=== PATIENT | female | born 1935 | race African-American/Black ===

== ENCOUNTER 2019-10-27 16:00 | Inpatient (IN) ==
[2019-10-27 19:08] LABS: Basophils # 0.1 10*3/uL (0.0-0.2); Eosinophils # 0.1 10*3/uL (0.0-0.87); Eosinophils % 0.8 % (0.00-10.9); Hematocrit 43.8 VOL% (35.7-47.0); Hemoglobin 13.6 GM/DL (12.0-16.0); Immature Granulocytes % 1.1 %; Immature Granulocytes Absolute 0.08 #; Lymphocytes # 1.4 10*3/uL (1.4-4.0); Lymphocytes % 19.2 % (21.3-54.2); Mean Corpuscular HGB Conc 31.1 GM/DL (32-36); Mean Corpuscular Volume 89.2 FL (87-102); Mean Platelet Volume 13.2 FL (9.6-12.0); Monocytes % 12.7 % (1.7-12.7); Neutrophils % 65.2 % (38.7-73.9); Platelet Count 233 T/CUMM (130-400); Red Blood Count 4.91 MC/CUMM (3.8-5.5); Red Cell Distribution Width 14.3 % (9.3-17.3); White Blood Count 7.2 T/CUMM (4-12)
[2019-10-27 19:23] LABS: Alanine Aminotransferase < 9 U/L (13-56); Alkaline Phosphatase 272 U/L (45-117); Aspartate Amino Transferase 23 U/L (0-37); Blood Urea Nitrogen 13 MG/DL (7-18); Calcium 9.6 MG/DL (8.5-10.1); Estimated Glom Filtration Rate 68 ML/MIN; Glucose 98 MG/DL (74-106); Total Protein 7.4 G/DL (6.4-8.3)
[2019-10-27 19:51] LABS: Ferritin 141.7 ng/ml (8-252)
[2019-10-27 20:53] LABS: Apearance,Urine CLOUDY (Clear); Bacteria,Urine Occasional /HPF (Few); Bilirubin,Urine Negative (Negative); Blood, Urine Moderate mg/dL (Negative); Glucose,Urine (UA) Negative (Negative); Hyaline Casts,Urine 46 /LPF (0-3); Ketones,Urine 5 mg/dL (Negative); Mucus,Urine Occasional /LPF (Occasional); Nitrite,Urine Negative (Negative); Protein,Urine Negative; RBC,Urine 20 /HPF (0-4); Squamous Epithelial Cell,Urine Moderate /HPF (0-10); Urine Color Yellow (Yellow); Urine Specific Gravity 1.018 (1.001-1.035); Urine Urobilinogen < 2.0 EU/DL (0.2-1.0); WBC,Urine 42 /HPF (0-6)
[2019-10-27] MEDS ORDERED: GLUCAGON 1 MG VIAL IM PRN (22:55)
[2019-10-27] MEDS ORDERED: DEXTROSE 50% 25 GM/50 ML VIAL IV PRN (22:55)
[2019-10-27] MEDS ORDERED: hydrALAZINE 20 MG/1 ML VIAL IV PRN (23:00)
[2019-10-27] MEDS ORDERED: diphenhydrAMINE CAP 25 MG CAPSULE PO PRN (23:00)
[2019-10-27] MEDS ORDERED: ALUMINUM/MAGNES/SIMETH MAX STR 30 ML UDCUP PO PRN (23:00)
[2019-10-27] MEDS ORDERED: guaiFENesin/DM ER 600-30 MG TABLET PO PRN (23:00)
[2019-10-27] MEDS ORDERED: ACETAMINOPHEN 325 MG TABLET PO PRN (23:00)
[2019-10-27] MEDS ORDERED: NICOTINE 21 MG/24 HR PATCH TRANSDERM PRN (23:00)
[2019-10-28] MEDS: POTASSIUM CHLORIDE 20 MEQ PACK PO SCH (08:18)
[2019-10-28] MEDS: CETIRIZINE 10 MG TABLET PO SCH (08:18)
[2019-10-28] MEDS: hydroCHLOROthiazide 25 MG TABLET PO SCH (08:18)
[2019-10-28] MEDS: MELOXICAM 7.5 MG TABLET PO SCH (08:18)
[2019-10-28] MEDS: carvediloL 6.25 MG TABLET PO SCH (08:18)
[2019-10-28] MEDS: atenoloL 50 MG TABLET PO SCH (08:18)
[2019-10-28] MEDS: LOSARTAN 50 MG TABLET PO SCH (08:18)
[2019-10-28] MEDS: PANTOPRAZOLE 40 MG TABLET PO SCH (08:18)
[2019-10-28 12:31] LABS: Calcium 9.2 MG/DL (8.5-10.1); Osmolality,Calculated 268.1 MOS/KG (273-304)
[2019-10-28 12:39] LABS: Basophils # 0.1 10*3/uL (0.0-0.2); Basophils % 0.9 % (0.0-0.8); Eosinophils # 0.1 10*3/uL (0.0-0.87); Eosinophils % 1.9 % (0.00-10.9); Hematocrit 44.9 VOL% (35.7-47.0); Hemoglobin 13.6 GM/DL (12.0-16.0); Immature Granulocytes Absolute 0.07 #; Lymphocytes # 1.2 10*3/uL (1.4-4.0); Lymphocytes % 17.8 % (21.3-54.2); Mean Corpuscular HGB Conc 30.3 GM/DL (32-36); Mean Corpuscular Volume 89.6 FL (87-102); Mean Platelet Volume 13.2 FL (9.6-12.0); Monocytes % 15.2 % (1.7-12.7); Neutrophils % 63.2 % (38.7-73.9); Platelet Count 228 T/CUMM (130-400); Red Blood Count 5.01 MC/CUMM (3.8-5.5); Red Cell Distribution Width 14.4 % (9.3-17.3)
[2019-10-28] MEDS: SIMVASTATIN 10 MG TABLET PO SCH (20:30)
[2019-10-28] MEDS: LATANOPROST 0.005% OPH SOLN 2.5 ML BOTTLE BOTH EYES SCH (20:30)
[2019-10-29 05:25] LABS: Basophils # 0.1 10*3/uL (0.0-0.2); Basophils % 0.8 % (0.0-0.8); Eosinophils # 0.2 10*3/uL (0.0-0.87); Eosinophils % 2.4 % (0.00-10.9); Immature Granulocytes % 1.2 %; Immature Granulocytes Absolute 0.09 #; Lymphocytes # 1.7 10*3/uL (1.4-4.0); Lymphocytes % 23.2 % (21.3-54.2); Mean Corpuscular HGB Conc 29.2 GM/DL (32-36); Mean Corpuscular Volume 94.2 FL (87-102); Mean Platelet Volume 12.7 FL (9.6-12.0); Monocytes % 14.2 % (1.7-12.7); Neutrophils % 58.2 % (38.7-73.9); Platelet Count 241 T/CUMM (130-400); Red Blood Count 4.84 MC/CUMM (3.8-5.5); Red Cell Distribution Width 14.3 % (9.3-17.3); White Blood Count 7.5 T/CUMM (4-12)
[2019-10-29 05:47] LABS: Hematocrit 44.4 VOL% (35.7-47.0); Hemoglobin 13.3 GM/DL (12.0-16.0)
[2019-10-29 06:07] LABS: Atypical Lymphocytes Few; Eosinophils 1 % (0-10); Hypochromasia 1+; Lymphocytes 25 % (20-55); Microcytosis Slight; Segmented Neutrophils 63 % (50-85); Total Cells Counted 100
[2019-10-29 06:08] LABS: Ovalocytes Slight; Platelet Estimate Normal
[2019-10-29 06:10] LABS: Calcium 9.1 MG/DL (8.5-10.1); Osmolality,Calculated 272.7 MOS/KG (273-304)
[2019-10-29] MEDS: carvediloL 6.25 MG TABLET PO SCH (08:19)
[2019-10-29] MEDS: LOSARTAN 50 MG TABLET PO SCH (08:19)
[2019-10-29] MEDS: MELOXICAM 7.5 MG TABLET PO SCH (08:19)
[2019-10-29] MEDS: POTASSIUM CHLORIDE 20 MEQ PACK PO SCH (08:19)
[2019-10-29] MEDS: hydroCHLOROthiazide 25 MG TABLET PO SCH (08:19)
[2019-10-29] MEDS: PANTOPRAZOLE 40 MG TABLET PO SCH (08:19)
[2019-10-29] MEDS: atenoloL 50 MG TABLET PO SCH (08:20)
[2019-10-29] MEDS: CETIRIZINE 10 MG TABLET PO SCH (08:20)
[2019-10-29] MEDS: CEFEPIME 1,000 MG in SODIUM CHLORIDE 0.9% 100 ML IV SCH ×2 (11:02→20:26)
[2019-10-29] MEDS: VANCOMYCIN INJ 1,250 MG in SODIUM CHLORIDE 0.9% 250 ML IV SCH (12:51)
[2019-10-29] MEDS ORDERED: LEVOFLOXACIN 750 MG TABLET PO SCH (15:00)
[2019-10-29] MEDS: SIMVASTATIN 10 MG TABLET PO SCH (20:25)
[2019-10-29] MEDS: LATANOPROST 0.005% OPH SOLN 2.5 ML BOTTLE BOTH EYES SCH (20:25)
[2019-10-30] MEDS: CEFEPIME 1,000 MG in SODIUM CHLORIDE 0.9% 100 ML IV SCH ×4 (03:15→21:10)
[2019-10-30 05:55] LABS: Basophils # 0.1 10*3/uL (0.0-0.2); Basophils % 0.8 % (0.0-0.8); Eosinophils # 0.2 10*3/uL (0.0-0.87); Eosinophils % 2.9 % (0.00-10.9); Hemoglobin 12.8 GM/DL (12.0-16.0); Immature Granulocytes % 1.2 %; Immature Granulocytes Absolute 0.09 #; Lymphocytes # 1.3 10*3/uL (1.4-4.0); Lymphocytes % 17.2 % (21.3-54.2); Mean Corpuscular HGB Conc 30.5 GM/DL (32-36); Mean Corpuscular Volume 91.3 FL (87-102); Mean Platelet Volume 13.1 FL (9.6-12.0); Monocytes % 14.8 % (1.7-12.7); Neutrophils % 63.1 % (38.7-73.9); Platelet Count 216 T/CUMM (130-400); Red Cell Distribution Width 14.3 % (9.3-17.3); White Blood Count 7.6 T/CUMM (4-12)
[2019-10-30 06:30] LABS: Hypochromasia 1+; Platelet Estimate Adequate
[2019-10-30 06:31] LABS: Microcytosis Slight
[2019-10-30] MEDS: VANCOMYCIN INJ 1,250 MG in SODIUM CHLORIDE 0.9% 250 ML IV SCH (06:34)
[2019-10-30] MEDS: CETIRIZINE 10 MG TABLET PO SCH (08:08)
[2019-10-30] MEDS: POTASSIUM CHLORIDE 20 MEQ PACK PO SCH (08:08)
[2019-10-30] MEDS: MELOXICAM 7.5 MG TABLET PO SCH (08:08)
[2019-10-30] MEDS: PANTOPRAZOLE 40 MG TABLET PO SCH (08:09)
[2019-10-30] MEDS: carvediloL 6.25 MG TABLET PO SCH (08:09)
[2019-10-30] MEDS: LOSARTAN 50 MG TABLET PO SCH (08:09)
[2019-10-30] MEDS: hydroCHLOROthiazide 25 MG TABLET PO SCH (08:09)
[2019-10-30] MEDS: atenoloL 50 MG TABLET PO SCH (08:09)
[2019-10-30 09:26] LABS: Osmolality,Calculated 270.8 MOS/KG (273-304)
[2019-10-30] MEDS: SIMVASTATIN 10 MG TABLET PO SCH (21:10)
[2019-10-30] MEDS: ONDANSETRON 4 MG/2 ML VIAL IV PRN (21:12)
[2019-10-30] MEDS: LATANOPROST 0.005% OPH SOLN 2.5 ML BOTTLE BOTH EYES SCH (21:55)
[2019-10-31] MEDS: CEFEPIME 1,000 MG in SODIUM CHLORIDE 0.9% 100 ML IV SCH ×4 (03:44→22:47)
[2019-10-31 07:13] LABS: Basophils # 0.1 10*3/uL (0.0-0.2); Basophils % 0.8 % (0.0-0.8); Eosinophils # 0.1 10*3/uL (0.0-0.87); Eosinophils % 0.7 % (0.00-10.9); Hematocrit 40.5 VOL% (35.7-47.0); Hemoglobin 12.3 GM/DL (12.0-16.0); Immature Granulocytes % 0.9 %; Immature Granulocytes Absolute 0.07 #; Lymphocytes # 1.3 10*3/uL (1.4-4.0); Lymphocytes % 16.7 % (21.3-54.2); Mean Corpuscular HGB Conc 30.4 GM/DL (32-36); Mean Corpuscular Volume 90.2 FL (87-102); Mean Platelet Volume 12.7 FL (9.6-12.0); Monocytes % 15.8 % (1.7-12.7); Neutrophils % 65.1 % (38.7-73.9); Platelet Count 205 T/CUMM (130-400); Red Blood Count 4.49 MC/CUMM (3.8-5.5); White Blood Count 7.7 T/CUMM (4-12)
[2019-10-31 07:38] LABS: Lymphocytes 15 % (20-55); Platelet Estimate Adequate; Segmented Neutrophils 74 % (50-85); Total Cells Counted 100
[2019-10-31 07:39] LABS: Hypochromasia 1+; Microcytosis Slight
[2019-10-31] MEDS: PANTOPRAZOLE 40 MG TABLET PO SCH (09:16)
[2019-10-31] MEDS: MELOXICAM 7.5 MG TABLET PO SCH (09:16)
[2019-10-31] MEDS: LOSARTAN 50 MG TABLET PO SCH (09:16)
[2019-10-31] MEDS: CETIRIZINE 10 MG TABLET PO SCH (09:17)
[2019-10-31] MEDS: atenoloL 50 MG TABLET PO SCH (09:17)
[2019-10-31] MEDS: carvediloL 6.25 MG TABLET PO SCH (09:17)
[2019-10-31] MEDS: hydroCHLOROthiazide 25 MG TABLET PO SCH (09:17)
[2019-10-31] MEDS: POTASSIUM CHLORIDE 20 MEQ PACK PO SCH (10:19)
[2019-10-31] MEDS: ONDANSETRON 4 MG/2 ML VIAL IV PRN (22:47)
[2019-10-31] MEDS: LATANOPROST 0.005% OPH SOLN 2.5 ML BOTTLE BOTH EYES SCH (22:47)
[2019-10-31] MEDS: SIMVASTATIN 10 MG TABLET PO SCH (22:47)
[2019-11-01] MEDS: CEFEPIME 1,000 MG in SODIUM CHLORIDE 0.9% 100 ML IV SCH ×3 (05:15→17:00)
[2019-11-01 07:27] LABS: Calcium 9.4 MG/DL (8.5-10.1)
[2019-11-01] MEDS: ONDANSETRON 4 MG/2 ML VIAL IV PRN (08:21)
[2019-11-01] MEDS: LOSARTAN 50 MG TABLET PO SCH (09:28)
[2019-11-01] MEDS: atenoloL 50 MG TABLET PO SCH (09:28)
[2019-11-01] MEDS: PANTOPRAZOLE 40 MG TABLET PO SCH (09:28)
[2019-11-01] MEDS: carvediloL 6.25 MG TABLET PO SCH (09:28)
[2019-11-01] MEDS: hydroCHLOROthiazide 25 MG TABLET PO SCH (09:28)
[2019-11-01] MEDS: CETIRIZINE 10 MG TABLET PO SCH (09:29)
[2019-11-01] MEDS: POTASSIUM CHLORIDE 20 MEQ PACK PO SCH (09:42)
[2019-11-01] MEDS: MELOXICAM 7.5 MG TABLET PO SCH (09:42)
[2019-11-01] MEDS: POTASSIUM CHLORIDE 20 MEQ TABLET PO PRN ×2 (11:55→16:04)
[2019-11-01] MEDS: SIMVASTATIN 10 MG TABLET PO SCH (21:40)
[2019-11-01] MEDS: LATANOPROST 0.005% OPH SOLN 2.5 ML BOTTLE BOTH EYES SCH (21:40)
[2019-11-02] MEDS: POTASSIUM CHLORIDE 20 MEQ PACK PO SCH (08:33)
[2019-11-02] MEDS: LOSARTAN 50 MG TABLET PO SCH (08:33)
[2019-11-02] MEDS: hydroCHLOROthiazide 25 MG TABLET PO SCH (08:34)
[2019-11-02] MEDS: CETIRIZINE 10 MG TABLET PO SCH (08:34)
[2019-11-02] MEDS: atenoloL 50 MG TABLET PO SCH (08:34)
[2019-11-02] MEDS: carvediloL 6.25 MG TABLET PO SCH (08:34)
[2019-11-02] MEDS: PANTOPRAZOLE 40 MG TABLET PO SCH (08:34)
[2019-11-02] MEDS: POTASSIUM CHLORIDE 20 MEQ TABLET PO PRN ×2 (08:36→11:07)
[2019-11-02] MEDS: MELOXICAM 7.5 MG TABLET PO SCH (08:36)
[2019-11-02] MEDS: ONDANSETRON 4 MG/2 ML VIAL IV PRN (11:16)
[2019-11-02] MEDS ORDERED: POTASSIUM CHLORIDE 20 MEQ/15 ML UDCUP PO SCH (14:30)
[2019-11-02] MEDS ORDERED: SIMETHICONE CHEW 80 MG TABLET PO ONE (18:53)
[2019-11-02] MEDS: SIMVASTATIN 10 MG TABLET PO SCH (20:19)
[2019-11-02] MEDS: LATANOPROST 0.005% OPH SOLN 2.5 ML BOTTLE BOTH EYES SCH (20:20)
[2019-11-03] MEDS: LOSARTAN 50 MG TABLET PO SCH (10:05)
[2019-11-03] MEDS: atenoloL 50 MG TABLET PO SCH (10:05)
[2019-11-03] MEDS: CETIRIZINE 10 MG TABLET PO SCH (10:06)
[2019-11-03] MEDS: carvediloL 6.25 MG TABLET PO SCH (10:06)
[2019-11-03] MEDS: hydroCHLOROthiazide 25 MG TABLET PO SCH (10:07)
[2019-11-03] MEDS: PANTOPRAZOLE 40 MG TABLET PO SCH (10:07)
[2019-11-03] MEDS: POTASSIUM CHLORIDE 20 MEQ PACK PO SCH (10:07)
[2019-11-03] MEDS: SIMVASTATIN 10 MG TABLET PO SCH (20:42)
[2019-11-03] MEDS: LATANOPROST 0.005% OPH SOLN 2.5 ML BOTTLE BOTH EYES SCH (20:48)
[2019-11-04] MEDS ORDERED: MIDAZOLAM 2 MG/2 ML VIAL ONE (07:40)
[2019-11-04] MEDS ORDERED: PROMETHAZINE 25 MG/1 ML VIAL IM ONE (08:00)
[2019-11-04] MEDS ORDERED: MEPERIDINE 50 MG/1 ML VIAL IM ONE (08:00)
[2019-11-04] MEDS ORDERED: LIDOCAINE 2% VISCOUS 100 ML BOTTLE SWISH/SPIT ONE (08:30)
[2019-11-04] MEDS ORDERED: LIDOCAINE 2% 20 ML VIAL RESP TX ONE (08:30)
[2019-11-04] MEDS ORDERED: MIDAZOLAM 2 MG/2 ML VIAL IV ONE (08:30)
[2019-11-04] MEDS ORDERED: LIDOCAINE 1% 20 ML VIAL MISC INJ ONE (08:30)
[2019-11-04 09:00] LABS: Basophils # 0.1 10*3/uL (0.0-0.2); Basophils % 0.6 % (0.0-0.8); Eosinophils # 0.1 10*3/uL (0.0-0.87); Eosinophils % 0.8 % (0.00-10.9); Hematocrit 44.5 VOL% (35.7-47.0); Hemoglobin 13.5 GM/DL (12.0-16.0); Immature Granulocytes % 1.4 %; Immature Granulocytes Absolute 0.12 #; Lymphocytes # 1.5 10*3/uL (1.4-4.0); Lymphocytes % 16.9 % (21.3-54.2); Mean Corpuscular HGB Conc 30.3 GM/DL (32-36); Mean Corpuscular Volume 90.8 FL (87-102); Mean Platelet Volume 12.9 FL (9.6-12.0); Monocytes % 13.9 % (1.7-12.7); Neutrophils % 66.4 % (38.7-73.9); Platelet Count 217 T/CUMM (130-400); Red Cell Distribution Width 13.6 % (9.3-17.3); White Blood Count 8.6 T/CUMM (4-12)
[2019-11-04 09:22] LABS: Calcium 9.6 MG/DL (8.5-10.1); Osmolality,Calculated 266.5 MOS/KG (273-304)
[2019-11-04] MEDS: POTASSIUM CHLORIDE 20 MEQ PACK PO SCH (11:02)
[2019-11-04] MEDS: CETIRIZINE 10 MG TABLET PO SCH (11:03)
[2019-11-04] MEDS: hydroCHLOROthiazide 25 MG TABLET PO SCH (11:03)
[2019-11-04] MEDS: LOSARTAN 50 MG TABLET PO SCH (11:03)
[2019-11-04] MEDS: PANTOPRAZOLE 40 MG TABLET PO SCH (11:03)
[2019-11-04] MEDS: carvediloL 6.25 MG TABLET PO SCH (11:03)
[2019-11-04] MEDS: atenoloL 50 MG TABLET PO SCH (11:03)
[2019-11-04] MEDS: SIMVASTATIN 10 MG TABLET PO SCH (20:41)
[2019-11-04] MEDS: LATANOPROST 0.005% OPH SOLN 2.5 ML BOTTLE BOTH EYES SCH (20:42)
[2019-11-05 06:08] LABS: Basophils # 0.1 10*3/uL (0.0-0.2); Basophils % 0.6 % (0.0-0.8); Eosinophils # 0.1 10*3/uL (0.0-0.87); Eosinophils % 0.5 % (0.00-10.9); Hematocrit 47.2 VOL% (35.7-47.0); Hemoglobin 14.8 GM/DL (12.0-16.0); Immature Granulocytes % 1.4 %; Immature Granulocytes Absolute 0.13 #; Lymphocytes # 1.6 10*3/uL (1.4-4.0); Mean Corpuscular HGB Conc 31.4 GM/DL (32-36); Mean Corpuscular Volume 88.1 FL (87-102); Mean Platelet Volume 13.2 FL (9.6-12.0); Monocytes % 13.5 % (1.7-12.7); Platelet Count 177 T/CUMM (130-400); Red Blood Count 5.36 MC/CUMM (3.8-5.5); Red Cell Distribution Width 13.4 % (9.3-17.3); White Blood Count 9.4 T/CUMM (4-12)
[2019-11-05 06:19] LABS: Calcium 9.6 MG/DL (8.5-10.1); Osmolality,Calculated 259.9 MOS/KG (273-304)
[2019-11-05] MEDS ORDERED: MAGNESIUM SULF RIDER 4 GM in PREMIX 1 EACH IV PRN (07:23)
[2019-11-05] MEDS: atenoloL 50 MG TABLET PO SCH (09:28)
[2019-11-05] MEDS: hydroCHLOROthiazide 25 MG TABLET PO SCH (09:28)
[2019-11-05] MEDS: SODIUM CHLORIDE 0.9% 1,000 ML IV SCH (09:28)
[2019-11-05] MEDS: POTASSIUM CHLORIDE 20 MEQ PACK PO SCH (09:28)
[2019-11-05] MEDS: MAGNESIUM SULF RIDER 2 GM in PREMIX 1 EACH IV PRN (09:28)
[2019-11-05] MEDS: PANTOPRAZOLE 40 MG TABLET PO SCH (09:28)
[2019-11-05] MEDS: carvediloL 6.25 MG TABLET PO SCH (09:29)
[2019-11-05] MEDS: LOSARTAN 50 MG TABLET PO SCH (09:29)
[2019-11-05] MEDS: CETIRIZINE 10 MG TABLET PO SCH (09:29)
[2019-11-05] MEDS: ONDANSETRON 4 MG/2 ML VIAL IV PRN (10:00)
[2019-11-05] MEDS: SIMVASTATIN 10 MG TABLET PO SCH (21:07)
[2019-11-05] MEDS: LATANOPROST 0.005% OPH SOLN 2.5 ML BOTTLE BOTH EYES SCH (21:10)
[2019-11-06 07:01] LABS: Basophils # 0.1 10*3/uL (0.0-0.2); Basophils % 0.6 % (0.0-0.8); Eosinophils % 0.3 % (0.00-10.9); Hematocrit 47.1 VOL% (35.7-47.0); Hemoglobin 14.4 GM/DL (12.0-16.0); Lymphocytes # 1.5 10*3/uL (1.4-4.0); Lymphocytes % 15.7 % (21.3-54.2); Mean Corpuscular HGB Conc 30.6 GM/DL (32-36); Mean Corpuscular Volume 89.7 FL (87-102); Mean Platelet Volume 13.3 FL (9.6-12.0); Monocytes % 13.1 % (1.7-12.7); Neutrophils % 69.3 % (38.7-73.9); Platelet Count 154 T/CUMM (130-400); Red Blood Count 5.25 MC/CUMM (3.8-5.5); Red Cell Distribution Width 13.4 % (9.3-17.3); White Blood Count 9.7 T/CUMM (4-12)
[2019-11-06 07:44] LABS: Calcium 9.4 MG/DL (8.5-10.1); Osmolality,Calculated 257.1 MOS/KG (273-304)
[2019-11-06] MEDS: CETIRIZINE 10 MG TABLET PO SCH (09:54)
[2019-11-06] MEDS: PANTOPRAZOLE 40 MG TABLET PO SCH (09:54)
[2019-11-06] MEDS: POTASSIUM CHLORIDE 20 MEQ PACK PO SCH (09:54)
[2019-11-06] MEDS: LOSARTAN 50 MG TABLET PO SCH (09:55)
[2019-11-06] MEDS: atenoloL 50 MG TABLET PO SCH (09:55)
[2019-11-06] MEDS: hydroCHLOROthiazide 25 MG TABLET PO SCH (09:55)
[2019-11-06] MEDS: carvediloL 6.25 MG TABLET PO SCH (09:55)
[2019-11-06] MEDS: SODIUM CHLORIDE 0.9% 1,000 ML IV SCH (09:55)
[2019-11-06] MEDS: ONDANSETRON 4 MG/2 ML VIAL IV PRN (17:04)
[2019-11-06] MEDS: LATANOPROST 0.005% OPH SOLN 2.5 ML BOTTLE BOTH EYES SCH (20:42)
[2019-11-06] MEDS: SIMVASTATIN 10 MG TABLET PO SCH (20:42)
[2019-11-07 05:37] LABS: Basophils # 0.1 10*3/uL (0.0-0.2); Basophils % 0.7 % (0.0-0.8); Eosinophils # 0.1 10*3/uL (0.0-0.87); Eosinophils % 0.5 % (0.00-10.9); Hematocrit 49.2 VOL% (35.7-47.0); Hemoglobin 14.8 GM/DL (12.0-16.0); Immature Granulocytes % 1.3 %; Immature Granulocytes Absolute 0.13 #; Lymphocytes # 1.5 10*3/uL (1.4-4.0); Lymphocytes % 14.8 % (21.3-54.2); Mean Corpuscular HGB Conc 30.1 GM/DL (32-36); Mean Corpuscular Volume 91.4 FL (87-102); Mean Platelet Volume 13.1 FL (9.6-12.0); Monocytes % 12.7 % (1.7-12.7); Platelet Count 162 T/CUMM (130-400); Red Blood Count 5.38 MC/CUMM (3.8-5.5); Red Cell Distribution Width 13.2 % (9.3-17.3); White Blood Count 10.1 T/CUMM (4-12)
[2019-11-07 05:54] LABS: Calcium 9.4 MG/DL (8.5-10.1); Osmolality,Calculated 257.1 MOS/KG (273-304)
[2019-11-07 06:41] LABS: Platelet Estimate Normal
[2019-11-07] MEDS: SODIUM CHLORIDE 0.9% 1,000 ML IV SCH (07:44)
[2019-11-07] MEDS: carvediloL 6.25 MG TABLET PO SCH (08:07)
[2019-11-07] MEDS: LOSARTAN 50 MG TABLET PO SCH (08:07)
[2019-11-07] MEDS: atenoloL 50 MG TABLET PO SCH (08:07)
[2019-11-07] MEDS: CETIRIZINE 10 MG TABLET PO SCH (08:07)
[2019-11-07] MEDS: hydroCHLOROthiazide 25 MG TABLET PO SCH (08:07)
[2019-11-07] MEDS: POTASSIUM CHLORIDE 20 MEQ PACK PO SCH (08:07)
[2019-11-07] MEDS: PANTOPRAZOLE 40 MG TABLET PO SCH (08:07)
[2019-11-07] MEDS: MAGNESIUM SULF RIDER 2 GM in PREMIX 1 EACH IV PRN (08:19)
[2019-11-07] MEDS: ONDANSETRON 4 MG/2 ML VIAL IV PRN (08:19)
[2019-11-07] MEDS: SIMVASTATIN 10 MG TABLET PO SCH (20:23)
[2019-11-07] MEDS: LATANOPROST 0.005% OPH SOLN 2.5 ML BOTTLE BOTH EYES SCH (22:30)
[2019-11-08] MEDS: POTASSIUM CHLORIDE 20 MEQ PACK PO SCH (08:24)
[2019-11-08] MEDS: LOSARTAN 50 MG TABLET PO SCH (08:24)
[2019-11-08] MEDS: carvediloL 6.25 MG TABLET PO SCH (08:24)
[2019-11-08] MEDS: hydroCHLOROthiazide 25 MG TABLET PO SCH (08:24)
[2019-11-08] MEDS: CETIRIZINE 10 MG TABLET PO SCH (08:24)
[2019-11-08] MEDS: PANTOPRAZOLE 40 MG TABLET PO SCH (08:24)
[2019-11-08] MEDS: atenoloL 50 MG TABLET PO SCH (08:24)
[2019-11-08 12:22] VITALS: BP 126/73
== END 2019-11-08 12:20 | disposition hospice, home (50) | DRG 166 ==
LOC: N.ED 16:00 → SUATTDRO 20:08 → N.EDINP 20:08 → N.2W 21:35 → N.EDINP 21:50 → N.2E 10-30 13:15 → N.TELES 11-01 16:24
PROVIDERS: ADMIT Internal Medicine; ATTEND Internal Medicine
PROC: BRONCHB (2019-11-04 08:35)